=== PATIENT | male | born 1945 | race African-American/Black ===

== ENCOUNTER 2017-03-02 15:51 | Inpatient (IN) | payer MEDICARE, OTHER ==
[~2017-03-02] VITALS: Ht 180.3 cm; Wt 79.8 kg
[2017-03-02] MEDS ORDERED: SODIUM CHLORIDE 0.9% 1,000 ML IV ONE (16:31)
[2017-03-02 16:56] LABS: BASOPHILS % 0.4 % (0.0-2.0); EOSINOPHILS % 0.2 % (0.0-5.0); HEMATOCRIT. 34.9 % (42.0-52.0); HEMOGLOBIN. 11.9 g/dL (14.0-18.0); LYMPHOCYTES % 14.3 % (20.0-50.0); MEAN CORPUSCULAR HEMOGLOBIN 31.7 pg (28.0-32.0); MEAN CORPUSCULAR VOLUME 92.8 fL (80.0-94.0); MEAN PLATELET VOLUME 8.8 fl (7.4-10.4); MONOCYTES % 4.8 % (2.0-8.0); NEUTROPHILS % 80.3 % (40.0-76.0); PLATELET 143 x1000/uL (130-400); RED BLOOD CELL COUNT 3.76 mill/uL (4.7-6.1); RED CELL DISTRIBUTION WIDTH 12.4 % (11.6-14.6)
[2017-03-02 17:00] LABS: CHLORIDE 105 mEq/L (98-107)
[2017-03-02 17:05] LABS: CARBON DIOXIDE 31 mEq/L (21-32)
[2017-03-02 17:12] LABS: CREATINE KINASE MB FRACTION 1.3 ng/mL (0.5-3.6); TROPONIN I 0.03 ng/mL (0.00-0.04)
[2017-03-02 17:19] LABS: INR 1.3; PROTHROMBIN TIME 13.1 sec (9.4-11.6)
[2017-03-02] MEDS ORDERED: LEVOFLOXACIN 250MG TABLET PO ONE (22:15)
[2017-03-03] VITALS (7 sets, daily range): BP systolic 99–124; BP diastolic 47–70
[2017-03-03] MEDS ORDERED: VALA500T PO (00:38)
[2017-03-03] MEDS ORDERED: CHOL100044 PO (00:39)
[2017-03-03] MEDS ORDERED: CYAN10009 PO (00:45)
[2017-03-03] MEDS ORDERED: GING500C2 PO (00:45)
[2017-03-03] MEDS ORDERED: FLAX340P PO (00:45)
[2017-03-03] MEDS ORDERED: FISH1CAP34 PO (00:45)
[2017-03-03] MEDS ORDERED: UBID200C32 PO (00:45)
[2017-03-03] MEDS ORDERED: MORPHINE SULFATE 4 MG/ML CPJ (NOT FOR IM USE) IV PRN (01:45)
[2017-03-03] MEDS ORDERED: PANTOPRAZOLE SODIUM 40 MG/VIAL IV SCH (02:00)
[2017-03-03] MEDS: LEVOFLOXACIN 250MG TABLET PO SCH ×2 (02:05→22:31)
[2017-03-03] MEDS ORDERED: DEXT 5%/0.45% NACL KCL 20MEQ/L 1,000 ML IV SCH ×2 (03:00→05:00)
[2017-03-03 03:29] LABS: HEMATOCRIT 30.4 % (42.0-52.0); HEMOGLOBIN 10.3 g/dL (14.0-18.0)
[2017-03-03 08:02] LABS: BASOPHILS % 0.4 % (0.0-2.0); EOSINOPHILS % 0.7 % (0.0-5.0); HEMATOCRIT. 31.9 % (42.0-52.0); HEMOGLOBIN. 11.2 g/dL (14.0-18.0); LYMPHOCYTES % 21.6 % (20.0-50.0); MEAN CORPUSCULAR HEMOGLOBIN 32.2 pg (28.0-32.0); MEAN CORPUSCULAR VOLUME 91.9 fL (80.0-94.0); MEAN PLATELET VOLUME 9.4 fl (7.4-10.4); MONOCYTES % 6.1 % (2.0-8.0); NEUTROPHILS % 71.2 % (40.0-76.0); PLATELET 137 x1000/uL (130-400); RED BLOOD CELL COUNT 3.47 mill/uL (4.7-6.1); RED CELL DISTRIBUTION WIDTH 12.5 % (11.6-14.6)
[2017-03-03 08:31] LABS: CARBON DIOXIDE 30 mEq/L (21-32); CHLORIDE 105 mEq/L (98-107)
[2017-03-03] MEDS: VALACYCLOVIR HCL 500MG TABLET PO SCH (10:19)
[2017-03-03] MEDS: PANTOPRAZOLE SODIUM 40 MG/VIAL IV SCH (10:20)
[2017-03-03 15:29] LABS: HEMATOCRIT 30.2 % (42.0-52.0); HEMOGLOBIN 10.6 g/dL (14.0-18.0)
[2017-03-03 20:23] LABS: HEMATOCRIT 30.3 % (42.0-52.0); HEMOGLOBIN 10.5 g/dL (14.0-18.0)
[2017-03-04] VITALS: BP 108/52
[2017-03-04 01:26] LABS: HEMATOCRIT 28.7 % (42.0-52.0); HEMOGLOBIN 9.9 g/dL (14.0-18.0)
[2017-03-04 04:00] VITALS: BP 101/45
[2017-03-04 05:17] LABS: HEMATOCRIT 29.2 % (42.0-52.0); HEMOGLOBIN 9.9 g/dL (14.0-18.0)
[2017-03-04 08:00] VITALS: BP 103/50
[2017-03-04] MEDS: PANTOPRAZOLE SODIUM 40 MG/VIAL IV SCH (09:22)
[2017-03-04] MEDS: VALACYCLOVIR HCL 500MG TABLET PO SCH (09:22)
[2017-03-04 10:35] VITALS: BP 103/50
== END 2017-03-04 11:45 | disposition home or self-care (01) | DRG 920 ==
LOC: ER 16:45 → 5WST 19:57 → ENRESERV 21:59
PROVIDERS: ADMIT Internal Medicine; ATTEND Internal Medicine
DX: N99.820 Postprocedural hemorrhage of a genitourinary system organ or structure following a genitourinary system procedure (principal); D62 Acute posthemorrhagic anemia; C61 Malignant neoplasm of prostate; Z79.899 Other long term (current) drug therapy; Y84.8 Other medical procedures as the cause of abnormal reaction of the patient, or of later complication, without mention of misadventure at the time of the procedure; Y82.8 Other medical devices associated with adverse incidents
CPT/HCPCS: 36415; 71010; 80053; 82553; 84484; 85014; 85018; 85025; 85610; 85730; 86850; 86900; 93005; 96360; 96361; 99285; C9113; J7030

== ENCOUNTER 2017-03-07 00:17 | Inpatient (IN) | payer MEDICARE, OTHER ==
[2017-03-07] VITALS (11 sets, daily range): BP systolic 102–138; BP diastolic 51–65
[~2017-03-07] VITALS: Ht 185.4 cm; Wt 73.5 kg
[~2017-03-07 00:17] MED LIST: CHOL100044 PO; CYAN10009 PO; FISH1CAP34 PO; FLAX340P PO; GING500C2 PO; UBID200C32 PO; VALA500T PO
[2017-03-07] MEDS ORDERED: PANTOPRAZOLE SODIUM 40 MG/VIAL IV STA (00:37)
[2017-03-07] MEDS ORDERED: OCTREOTIDE ACETATE 50 MCG/ML 1ML IV STA (00:37)
[2017-03-07] MEDS ORDERED: SODIUM CHLORIDE 0.9% 1000ML BAG (SEPSIS BOLUS) IV ONE (00:45)
[2017-03-07 01:13] LABS: BASOPHILS % 0.7 % (0.0-2.0); EOSINOPHILS % 2.6 % (0.0-5.0); HEMATOCRIT. 23.9 % (42.0-52.0); HEMOGLOBIN. 8.3 g/dL (14.0-18.0); LYMPHOCYTES % 44.9 % (20.0-50.0); MEAN CORPUSCULAR HEMOGLOBIN 32.2 pg (28.0-32.0); MEAN CORPUSCULAR VOLUME 93.1 fL (80.0-94.0); MEAN PLATELET VOLUME 8.8 fl (7.4-10.4); MONOCYTES % 7.2 % (2.0-8.0); NEUTROPHILS % 44.6 % (40.0-76.0); PLATELET 142 x1000/uL (130-400); RED BLOOD CELL COUNT 2.57 mill/uL (4.7-6.1); RED CELL DISTRIBUTION WIDTH 12.2 % (11.6-14.6)
[2017-03-07 01:20] LABS: INR 1.2; PARTIAL THROMBOPLASTIN TIME 21.9 sec (23.4-31.0); PROTHROMBIN TIME 12.8 sec (9.4-11.6)
[2017-03-07 01:29] LABS: CARBON DIOXIDE 30 mEq/L (21-32); CHLORIDE 107 mEq/L (98-107); TROPONIN I < 0.02 ng/mL (0.00-0.04)
[2017-03-07] MEDS ORDERED: ONDANSETRON HCL 4MG/2ML VIAL IV STA (01:45)
[2017-03-07 03:27] LABS: CLARITY URINE CLEAR (CLEAR); COLOR URINE YELLOW (YELLOW); GLUCOSE URINE NEGATIVE (NEGATIVE); KETONES URINE TRACE (NEGATIVE); LEUKOCYTE ESTERASE URINE TRACE (NEGATIVE); NITRITE URINE NEGATIVE (NEGATIVE); OCCULT BLOOD URINE 3+ (NEGATIVE); PROTEIN URINE NEGATIVE (NEGATIVE); SPECIFIC GRAVITY URINE 1.022 (1.005-1.030); UROBILINOGEN URINE 0.2 E.U./dL (0.2-1.0)
[2017-03-07] MEDS ORDERED: CLONIDINE 0.1MG TABLET PO PRN (05:30)
[2017-03-07] MEDS ORDERED: MAGNESIUM/ALUMINUM HYDROXIDE/SIMETHICONE 30ML UDC PO PRN (05:30)
[2017-03-07] MEDS ORDERED: DIPHENHYDRAMINE 50MG/ML VIAL IV PRN (05:30)
[2017-03-07] MEDS ORDERED: ACETAMINOPHEN 325MG TABLET PO PRN (05:30)
[2017-03-07] MEDS ORDERED: ONDANSETRON HCL 4MG/2ML VIAL IV PRN (05:30)
[2017-03-07] MEDS ORDERED: CYAN10009 PO (07:21)
[2017-03-07] MEDS: SODIUM CHLORIDE 0.9% 1,000 ML IV SCH ×2 (07:51→15:40)
[2017-03-07] MEDS ORDERED: POTASSIUM CHLORIDE 20MEQ TABLET SR PO SCH (10:00)
[2017-03-08] VITALS (22 sets, daily range): BP systolic 90–161; BP diastolic 46–74
[2017-03-08] MEDS: SODIUM CHLORIDE 0.9% 1,000 ML IV SCH ×3 (01:34→23:15)
[2017-03-08 07:24] LABS: BASOPHILS % 0.9 % (0.0-2.0); EOSINOPHILS % 2.3 % (0.0-5.0); LYMPHOCYTES % 34.2 % (20.0-50.0); MEAN CORPUSCULAR HEMOGLOBIN 32.7 pg (28.0-32.0); MEAN CORPUSCULAR VOLUME 93.9 fL (80.0-94.0); MEAN PLATELET VOLUME 9.4 fl (7.4-10.4); MONOCYTES % 7.2 % (2.0-8.0); NEUTROPHILS % 55.4 % (40.0-76.0); PLATELET 118 x1000/uL (130-400); RED CELL DISTRIBUTION WIDTH 12.7 % (11.6-14.6)
[2017-03-08] MEDS ORDERED: POTASSIUM CHLORIDE 20MEQ TABLET SR PO NR (08:00)
[2017-03-08 08:07] LABS: CARBON DIOXIDE 28 mEq/L (21-32); CHLORIDE 109 mEq/L (98-107)
[2017-03-08] MEDS: VALACYCLOVIR HCL 500MG TABLET PO SCH (08:13)
[2017-03-08 08:23] LABS: HEMATOCRIT. 19.7 % (42.0-52.0); HEMOGLOBIN. 6.9 g/dL (14.0-18.0)
[2017-03-08] MEDS ORDERED: CYANOCOBALAMIN 1000MCG TABLET PO SCH (09:00)
[2017-03-08] MEDS ORDERED: CHOLECALCIFEROL (D3) 1000 UNIT TABLET PO SCH (09:00)
[2017-03-08 21:14] LABS: HEMATOCRIT 25.3 % (42.0-52.0); HEMOGLOBIN 9.2 g/dL (14.0-18.0)
[2017-03-09] VITALS (7 sets, daily range): BP systolic 108–132; BP diastolic 42–67
[2017-03-09] MEDS: SODIUM CHLORIDE 0.9% 1,000 ML IV SCH (07:16)
[2017-03-09] MEDS: VALACYCLOVIR HCL 500MG TABLET PO SCH (08:12)
== END 2017-03-09 13:13 | disposition home or self-care (01) | DRG 378 ==
LOC: ER 00:17 → ENRESERV 02:36 → 3WST 04:07
PROVIDERS: ADMIT Internal Medicine; ATTEND Internal Medicine
PROC: 30233N1 Transfusion of Nonautologous Red Blood Cells into Peripheral Vein, Percutaneous Approach (ICD-10-PCS; principal; 2017-03-07)
DX: K92.2 Gastrointestinal hemorrhage, unspecified (principal); E44.0 Moderate protein-calorie malnutrition; N39.0 Urinary tract infection, site not specified; D62 Acute posthemorrhagic anemia; Z85.46 Personal history of malignant neoplasm of prostate; Z79.899 Other long term (current) drug therapy; E87.6 Hypokalemia; Z90.89 Acquired absence of other organs; Z68.25 Body mass index [BMI] 25.0-25.9, adult
CPT/HCPCS: 36415; 36430; 70450; 71010; 80048; 80053; 81001; 82270; 83605; 83690; 83735; 84484; 85014; 85018; 85025; 85044; 85610; 85730; 86850; 86900; 86920; 93005; 93970; 96361; 96374; 96375; 99291; C9113; J2354; J2405; J7030; J7040; J7050; P9016